=== PATIENT | male | born 1975 | race Caucasian/White ===

== ENCOUNTER 2017-07-07 20:52 | Emergency (ER) | payer OTHER ==
[2017-07-07] MEDS ORDERED: Sulfamethox/Trimethoprim DS 800/160* TAB PO ONE (21:05)
--- NOTE | 2017-07-07 21:05 | ED ---
Skin Complaint - HPI Summary HPI Summary: 41 YEAR OLD MALE PRESENTS WITH COMPLAINS OF AN INSECT BITE ON POSTERIOR RIGHT CALF. - History of Current Complaint Time Seen by Provider: 07/07/17 20:59 Stated Complaint: INSECT BITE LEFT LEG - Allergy/Home Medications Allergies/Adverse Reactions: Allergies Allergy/AdvReac Type Severity Reaction Status Date / Time No Known Allergies Allergy Verified 07/07/17 21:10 PMH/Surg Hx/FS Hx/Imm Hx Endocrine/Hematology History: Reports: Hx Thyroid Disease - hypothyroidism Denies: Hx Diabetes Cardiovascular History: Reports: Hx Angina, Hx Coronary Artery Disease, Hx Hypercholesterolemia, Hx Hypertension, Hx Myocardial Infarction - 2011, Other Cardiovascular Problems/Disorders - CARDIAC CATH/HYPERCHOLESTEROLEMIA Respiratory History: Reports: Hx Sleep Apnea Denies: Hx Asthma, Hx Chronic Obstructive Pulmonary Disease (COPD), Hx Pneumonia GI History: Denies: Hx Gastroesophageal Reflux Disease, Hx Ulcer History: Denies: Hx Acute Renal Failure, Hx Benign Prostatic Hyperplasia, Other Problems/Disorders Musculoskeletal History: Reports: Hx Arthritis, Hx Bursitis Denies: Hx Osteoporosis, Other Musculoskeletal History Sensory History: Denies: Hx Contacts or Glasses, Hx Vision Problem, Hx Deafness, Hx Hearing Aid Opthamlomology History: Denies: Hx Contacts or Glasses, Hx Vision Problem Neurological History: Denies: Hx Migraine, Other Neuro Impairments/Disorders - Surgical History Surgery Procedure, Year, and Place: 07/2012 angioplasty 3rd marginal branch of LAD, [facility]. 01/2012 -3 LAD stents placed, [facility]. 03/2012-angioplasty, [facility] Hx Anesthesia Reactions: No - Immunization History Date of Tetanus Vaccine: UTD WITH SILCOFF Date of Influenza Vaccine: fall 2012 Infectious Disease History: Denies: Hx Clostridium Difficile, Hx Hepatitis, Hx Human Immunodeficiency Virus (HIV), Hx of Known/Suspected MRSA, Hx Shingles, Hx Tuberculosis, Hx Known/ Suspected VRE, Hx Known/Suspected VRSA, History Other Infectious Disease - Social History Alcohol Use: None Substance Use Type: Reports: None Smoking Status (MU): Former Smoker Type: Cigarettes Amount Used/How Often: 1 PPD X 12 YRS Length of Time of Smoking/Using Tobacco: approx 12 years Have You Smoked in the Last Year: No Review of Systems Constitutional: Negative Eyes: Negative ENT: Negative Cardiovascular: Negative Respiratory: Negative Gastrointestinal: Negative Genitourinary: Negative Musculoskeletal: Negative Positive: Rash, Other - RIGHT POSTERIOR CALF INSECT BITE All Other Systems Reviewed And Are Negative: Yes Physical Exam Triage Information Reviewed: Yes Vital Signs Reviewed: Yes Skin: Positive: Erythema @ - RIGHT POSTERIOR CALF INSECT BITE, Other Course/Dx - Diagnoses Provider Diagnoses: Insect bite Discharge - Discharge Plan Condition: Stable Disposition: HOME Prescriptions: Mupirocin 2% OINT* [Bactroban 2 % Oint*] 1 applic TOPICAL BID #1 tube Sulfamethox/Trimethoprim DS* [Bactrim DS 800/160 TAB*] 1 tab PO BID #14 tab Patient Education Materials: Insect Bite or Sting (ED) Referrals: Hever Peñaloza MD [Primary Care Provider] - If Needed
[2017-07-07 21:13] VITALS: BP 128/75
== END 2017-07-07 21:19 | disposition home or self-care (01) ==
LOC: UCCORT 20:52
DX: S80.861A Insect bite (nonvenomous), right lower leg, initial encounter (principal); W57.XXXA Bitten or stung by nonvenomous insect and other nonvenomous arthropods, initial encounter; Y93.9 Activity, unspecified; Y99.9 Unspecified external cause status; I10 Essential (primary) hypertension; I25.10 Atherosclerotic heart disease of native coronary artery without angina pectoris; E78.00 Pure hypercholesterolemia, unspecified
CPT/HCPCS: 99212; A9270-GY; G0463

== ENCOUNTER 2017-12-23 16:41 | Emergency (ER) | payer OTHER ==
--- OUTSIDE RECORDS SUMMARY | 2017-12-23 16:56 | XMS REPORT ---
:1975 External Reference #:[id number] Author Organization [facility] Address [address] [address] Phone [phone] Care Team Providers Name Role Phone Hever Peñaloza MD Care Team Information Biller Unavailable Hever Peñaloza MD Primary Care Physician Unavailable Payers Type Date Identification Numbers Payment Provider Subscriber Commercial Policy Number: [id number] Brayan Cesra JR PayID: [id number] [address] [place] [address] Problems Date Description Provider Status Onset: 05/03/2017 Obstructive sleep apnea syndrome Berta Thakur MD Active Onset: 05/11/2016 Athscl heart disease of mechoopda Galen eMndoza M.D., [facility], Active coronary artery w/o ang pctrs [facility] Onset: 10/24/2013 Hyperlipidemia Galen Mendoza M.D., [facility], Active [facility] Onset: 10/24/2013 Essential hypertension Galen Mendoza M.D., [facility], Active [facility] Onset: 10/24/2013 Chronic ischemic heart disease Galen Mendoza M.D., [facility], Active [facility] Family History Date Family Member(s) Problem(s) Comments General Heart Disease General Cancer General Diabetes Social History Type Date Description Comments Marital Status Lives With Girlfriend Lives With Girlfriend's dad Occupation Contractor Cigarette Use Former Cigarette Smoker ETOH Use Denies alcohol use Smoking Patient is a former smoker quit in 2003 Recreational Drug Use Denies Drug Use Daily Caffeine Consumes on average 3 cups of regular coffee per day Exercise Type/Frequency Exercises regularly Exercise Type/Frequency Home workout 3x per week Exercise Type/Frequency Walks daily Allergies, Adverse Reactions, Alerts Date Description Reaction Status Severity Comments 03/28/2014 NKDA active 05/03/2017 Electrodes Urticaria active Medications Medication Date Status Form Strength Qnty SIG Indications Ordering Provider Atorvastatin Active Tablets 40mg 30tabs 1 by Galen Calcium 016 mouth Stefek, every day M.D., FACC, [facility] Nitrostat Active Tablets 0.4mg 25tabs one sl Galen 016 Sub q5min up Stefek, to 3 M.D., doses as FACC, needed [facility] Aspirin Active Tablets 81mg 100tab 1 po qd Unknown 000 s Fish Oil Active daily Unknown Burp-Less 000 Amlodipine Active Tablets 2.5mg 30tabs 1 by Galen Besylate 000 mouth Stefek, every day M.D., FACC, [facility] Synthroid Active 75mcg daily Unknown 000 Keflex Hx Capsules 500mg 56caps 1 tablet Lauren 014 - by mouth Ralph, q6 hours M.D. 015 Oxycodone-Aceta Hx Tablets 5-325mg 50tabs one to Lauren minophen 014 - two tabs Ralph, by mouth M.D. 014 every 4-6 hours as needed for pain Naproxen Hx Tablets 500mg 40tabs 1 tablet Lauren 014 - with food Ralph, by mouth M.D. 014 twice a day Clopidogrel 0 Hx Tablets 75mg 90tabs 1 po qd Unknown 000 - 014 Atorvastatin 0 Hx Tablets 20mg 90tabs take 1 Unknown Calcium 000 - tablet at bedtime 013 Metoprolol 00/0 Hx Tablets ER 25mg 30tabs 1 po qd Unknown Succinate ER 000 - 24HR 013 Atorvastatin 00/0 Hx Tablets 40mg 1 po qd Unknown Calcium 000 - 014 Plavix /00/0 Hx Unknown 000 - 014 Lipitor 00/0 Hx Unknown 000 - 014 Lipitor 00/00/0 Hx Tablets 40mg 90tabs 1 by Galen 000 - [facility], bedtime M.D., 016 [facility], [facility] Clopidogrel 0 Hx Tablets 75mg Unknown Bisulfate 000 - 015 Vital Signs Date Vital Result Comment 12/05/2017 Height 69 inches 5'9" Weight 186.00 lb with boots Heart Rate 60 /min BP Systolic Sitting 140 mmHg Rue reg cuff BP Diastolic Sitting 90 mmHg Rue reg cuff Respiratory Rate 16 /min O2 % BldC Oximetry 97 % On Ra BMI (Body Mass Index) 27.5 kg/m2 05/03/2017 Height 69 inches 5'9" Weight 175.00 lb per pt Heart Rate 60 /min reg BP Systolic Sitting 130 mmHg Lue, reg cuff BP Diastolic Sitting 88 mmHg Lue, reg cuff Respiratory Rate 16 /min O2 % BldC Oximetry 97 % on Ra BMI (Body Mass Index) 25.8 kg/m2 Neck Circumference in inches 15 05/11/2016 Height 69 inches 5'9" Weight 172.00 lb Heart Rate 56 /min 60 BP Systolic Sitting 124 mmHg right arm, reg cuff BP Diastolic Sitting 80 mmHg right arm, reg cuff BP Systolic Standing 120 mmHg right arm, reg cuff BP Diastolic Standing 80 mmHg right arm, reg cuff Respiratory Rate 16 /min BMI (Body Mass Index) 25.4 kg/m2 Ejection Fraction 60% 12/12/13 Nem 04/30/2015 Height 69 inches 5'9" Weight 170.00 lb Heart Rate 54 /min 56 BP Systolic Sitting 124 mmHg left arm, reg cuff BP Diastolic Sitting 78 mmHg left arm, reg cuff BP Systolic Standing 112 mmHg left arm, reg cuff BP Diastolic Standing 78 mmHg left arm, reg cuff Respiratory Rate 20 /min BMI (Body Mass Index) 25.1 kg/m2 Ejection Fraction 60% 07/18/12 05/23/2014 Height 69 inches 5'9" Weight 180.00 lb Heart Rate 64 /min BMI (Body Mass Index) 26.6 kg/m2 05/14/2014 Height 69 inches 5'9" Weight 180.00 lb Heart Rate 97 /min BP Systolic 129 mmHg BP Diastolic 79 mmHg Body Temperature 98.8 F BMI (Body Mass Index) 26.6 kg/m2 05/01/2014 Height 69 inches 5'9" Weight 184.00 lb Heart Rate 80 /min 90 BP Systolic Sitting 128 mmHg right arm, reg cuff BP Diastolic Sitting 94 mmHg right arm, reg cuff BP Systolic Standing 124 mmHg right arm, reg cuff BP Diastolic Standing 88 mmHg right arm, reg cuff Respiratory Rate 20 /min BMI (Body Mass Index) 27.2 kg/m2 04/23/2014 Height 69 inches 5'9" Weight 180.00 lb Heart Rate 77 /min BP Systolic 135 mmHg BP Diastolic 88 mmHg BMI (Body Mass Index) 26.6 kg/m2 04/14/2014 Height 69 inches 5'9" Weight 180.00 lb Heart Rate 76 /min BP Systolic 137 mmHg BP Diastolic 87 mmHg BMI (Body Mass Index) 26.6 kg/m2 03/28/2014 Height 69 inches 5'9" Weight 180.00 lb Heart Rate 72 /min BMI (Body Mass Index) 26.6 kg/m2 10/24/2013 Height 68 inches 5'8" Weight 191.00 lb Heart Rate 6072 /min BP Systolic Sitting 130 mmHg right arm, reg cuff BP Diastolic Sitting 90 mmHg right arm, reg cuff BP Systolic Standing 128 mmHg right arm, reg cuff BP Diastolic Standing 86 mmHg right arm, reg cuff Respiratory Rate 20 /min BMI (Body Mass Index) 29.0 kg/m2 Results Test Date Test Result H/L Range Note Basic Metabolic Panel 05/25/2017 Sodium 137 mmol/L 133-145 Potassium 4.1 mmol/L 3.5-5.0 Chloride 105 mmol/L 101-111 Co2 Carbon Dioxide 26 mmol/L 22-32 Anion Gap 6 mmol/L 2-11 Glucose 93 mg/dL 70-100 Blood Urea Nitrogen 15 mg/dL 6-24 Creatinine 0.96 mg/dL 0.67-1.17 BUN/Creatinine Ratio 15.6 8-20 Calcium 9.3 mg/dL 8.6-10.3 Egfr Non- 85.5 >60 Egfr 109.9 >60 1 Lipid Profile (Trig/Chol/HDL) 05/25/2017 Triglycerides 65 mg/dL 2 Cholesterol 126 mg/dL 3 HDL Cholesterol 45.1 mg/dL 4 LDL Cholesterol 68 mg/dL 5 Laboratory test finding 05/25/2017 Alt (SGPT) 28 U/L 7-52 6 TSH (Thyroid Stim Horm) 1.78 mcIU/mL 0.34-5.60 7 Surgical Pathology 05/08/2014 S RUN DATE: 05/09/ <SEE 8 NOTE> CBC Auto Diff 11/08/2013 White Blood Count 8.2 10^3/uL 4.8-10.8 Red Blood Count 4.82 10^6/uL 4.0-5.4 Hemoglobin 15.6 g/dL 14.0-18.0 Hematocrit 44 % 42-52 Mean Corpuscular Volume 91 fL 80-94 Mean Corpuscular Hemoglobin 32 pg High 27-31 Mean Corpuscular HGB Conc 36 g/dL 31-36 Red Cell Distribution Width 13 % 10.5-15 Platelet Count 278 10^3/uL 150-450 Mean Platelet Volume 9 um3 7.4-10.4 Abs Neutrophils 4.6 10^3/uL 1.5-7.7 Abs Lymphocytes 2.5 10^3/uL 1.0-4.8 Abs Monocytes 0.7 10^3/uL 0-0.8 Abs Eosinophils 0.3 10^3/uL 0-0.6 Abs Basophils 0 10^3/uL 0-0.2 Abs Nucleated RBC 0.01 10^3/uL Granulocyte % 56.9 % 38-83 Lymphocyte % 30.4 % 25-47 Monocyte % 8.3 % 1-9 Eosinophil % 4.0 % 0-6 Basophil % 0.4 % 0-2 Nucleated Red Blood Cells % 0.1 Basic Metabolic Panel 11/08/2013 Sodium 138 mmol/L 133-145 Potassium 4.2 mmol/L 3.5-5.0 Chloride 104 mmol/L 101-111 Co2 Carbon Dioxide 28.0 mmol/L 22-32 Anion Gap 6.0 mmol/L 2-11 Glucose 99 mg/dL 70-100 Blood Urea Nitrogen 17 mg/dL 6-24 Creatinine 1.10 mg/dL 0.50-1.40 BUN/Creatinine Ratio 15.5 8-20 Calcium 9.1 mg/dL 8.1-9.9 Egfr Non- 74.5 >60 Egfr 95.8 >60 9 Lipid Profile (Trig/Chol/HDL) 11/08/2013 Triglycerides 159 mg/dL 40-200 Cholesterol 134 mg/dL Less than 200 HDL Cholesterol 39 mg/dL Low 40-60 10 Cholesterol/HDL Ratio 3.4 Average 1-4.44 LDL Cholesterol 63.2 Less Than 100 11 Laboratory test finding 11/08/2013 Alt 38 U/L 14-54 Ast 25 U/L 12-42 TSH (Thyroid Stimulating Horm) 10.04 miu/mL High 0.34-5.60 1 Because ethnic data is not always readily available, this report includes an eGFR for both -Americans and non- Americans. The National Kidney Disease Education Program (NKDEP) does not endorse the use of the MDRD equation for patients that are not between the ages of 18 and 70, are , have extremes of body size, muscle mass, or nutritional status, or are non- or non-. According to the National Kidney Foundation, irrespective of diagnosis, the stage of the disease is based on the level of kidney function: Stage Description GFR(mL/min/1.73 m(2)) 1 Kidney damage with normal or decreased GFR 90 2 Kidney damage with mild decrease in GFR 60-89 3 Moderate decrease in GFR 30-59 4 Severe decrease in GFR 15-29 5 Kidney failure <15 (or dialysis) 2 Desirable <150 Borderline high 150-199 High 200-499 Very High >500 3 Desirable <200 Borderline high 200-239 High >239 4 Low <40 Desirable: 40-60 High: >60 5 Desirable: <100 mg/dL Near Optimal: 100-129 mg/dL Borderline High: 130-159 mg/dL High: 160-189 mg/dL Very High: >189 mg/dL 6 FASTING 12 HOUR Copy Result to: Galen MENDOZA ([id number]) 7 FASTING 12 HOUR Copy Result to: Galen MENDOZA ([id number]) 8 RUN DATE: 05/09/14 [facility] LIVE PAGE 1 RUN TIME: [id number] [place], [place] [address] Specimen Inquiry Name: EFREN CESAR : [address]: Lauren Rosas MD Acct: [id number] Unit: [id number] AGE: 38 Location: OR Re05/08/14 SEX: M Status: REG SDC SPEC: [id number] TAYLER: 05/08/14- [facility] DR: Lauren Rosas MD REQ: [id number] RECD: 05/08/141457 STATUS: SOUT _ ORDERED: LEVEL III FINAL DIAGNOSIS Knee, right, pre-patella bursa, excision: Benign synovial tissue with reactive fibrosis. PRE-OPERATIVE DIAGNOSIS Right knee pre-patella bursitis GROSS DESCRIPTION The specimen is received in formalin labeled Efren Cesar, Right Knee Pre- patella Bursa, and consists of a 6.9 x 4.8 x 1.5 cm. aggregate of multiple todd-pink rubbery irregular portions of fibrous tissue admixed with a small amount of yellow fat. The specimen is sectioned and merchandising representative sections are submitted in cassettes A and B. Signed (signature on file) Darline Dobson MD [id number] END OF REPORT * ML=Testing performed at Main Lab DEPARTMENT OF PATHOLOGY, [address] [place] [address] Doug Ellington M.D. Director [facility] # [id number] 9 Because ethnic data is not always readily available, this report includes an eGFR for both -Americans and non- Americans. The National Kidney Disease Education Program (NKDEP) does not endorse the use of the MDRD equation for patients that are not between the ages of 18 and 70, are , have extremes of body size, muscle mass, or nutritional status, or are non- or non-. According to the National Kidney Foundation, irrespective of diagnosis, the stage of the disease is based on the level of kidney function: Stage Description GFR(mL/min/1.73 m(2)) 1 Kidney damage with normal or decreased GFR 90 2 Kidney damage with mild decrease in GFR 60-89 3 Moderate decrease in GFR 30-59 4 Severe decrease in GFR 15-29 5 Kidney failure <15 (or dialysis) 10 HDL Interpretation: Undesirable: High Risk: Less than 40 mg/dL Desirable: Low Risk: Greater than 60 mg/dL 11 LDL Interpretation: Low Risk Optimal Level: LDL Less than 100 mg/dL Near or Above Optimal: LDL 100-129 mg/dL Borderline High Risk: LDL 130-159 mg/dL High Risk: LDL 160-189 mg/dL Very High Risk: LDL Greater than 189 mg/dL Procedures Date CPT Code Description Status 09/13/2017 14669 Polysomnography Sleep Staging 4+ Parameters Completed 05/11/2016 04323 EKG Tracing & Interpretation Completed 04/30/2015 95112 EKG Tracing & Interpretation Completed 12/09/2014 40571 Treadmill Interp/Report Only Completed 12/09/2014 32302 Stress Test Supervsn W/Out I/R Completed 12/09/2014 66798 EKG, Interpretation Only Completed 05/08/2014 72857 Excision Prepatellar Bursa Completed 05/08/2014 25765 Excision Prepatellar Bursa Completed 05/01/2014 06095 EKG Tracing & Interpretation Completed 03/28/2014 70711 Xray Knee 3 Views Completed 02/02/2014 93164 Polysomnography Sleep Staging 4+ Parameters W/Cpap Completed 01/12/2014 13179 Polysomnography Sleep Staging 4+ Parameters Completed 12/12/2013 72888 Treadmill Interp/Report Only Completed 12/12/2013 78922 Stress Test Supervsn W/Out I/R Completed 10/24/2013 29119 EKG Tracing & Interpretation Completed Encounters Type Date Location Provider CPT E/M Dx Office Visit 05/03/2017 [place] [address] G47.33 11:00a [facility] Q38.2 Office Visit 05/11/2016 8:20a [facility] Galen Mendoza M.D., 77857 E78.5 Technical Instructor At [facility], [facility] I10 I25.10 Office Visit 04/30/2015 8:20a [facility] Galen Mendoza M.D., 19957 272.4 Technical Instructor At [facility], [facility] 401.9 414.9 Office Visit 12/09/2014 10:03a [facility], Shayna Escobar N.P. 18838 786.50 Hospitalists 414.00 272.4 401.9 Office Visit 12/08/2014 10:03a [facility], Shayna Escobar, N.P. 47244 786.50 Hospitalists 414.00 272.4 401.9 Office Visit 05/01/2014 3:30p [facility] Galen Mendoza M.D., 45652 414.9 Technical Instructor At [facility], [facility] 401.9 272.4 Office Visit 04/23/2014 2:00p [facility] Lauren Rosas M.D. 76462 726.65 C.M.A. Office Visit 04/14/2014 2:00p [facility] Lauren Rosas M.D. 18634 726.65 C.M.A. Office Visit 03/28/2014 8:30a [facility] Lauren Rosas M.D. 13709 726.65 C.M.A. Office Visit 12/20/2013 2:20p [facility] Rupesh Parada, 88737 780.59 Abigail 786.09 780.79 Office Visit 12/12/2013 12:[facility]p [facility] Zach Garland, 27977 786.51 Hospitalists Abigail 414.01 401.9 794.5 Office Visit 12/11/2013 12:00p [facility], Zach Garland, 73266 786.51 Hospitalists Abigail 414.01 401.9 794.5 Office Visit 10/24/2013 8:15a [facility] Justin Mendoza M.D., 22055 414.9 Technical Instructor At [facility], [facility] 401.9 272.4 Office Visit 03/12/2013 1:15p [facility] Justin Mendoza M.D., 53107 414.9 [facility], [facility] 401.9 272.4 Plan of Care 12/05/2017 - Cintia Townsend DNP, RN, DIRECTOR PROCESS ENGINEERING-BCG47.33 Obstructive sleep apnea ( adult) (pediatric)Comments:Mild sleep apnea AHI 6.5/hour, worse REM 17.1/hour, pam oxygen 83%Follow up:PRNRecommendations:Sleep apnea, mild to use positional therapy and try to favor left side for sleep. Review of sleep study in detail and copy provided. Risks of untreated sleep apnea including cardiovascular events: rhythm irregularities, heart attack, stroke; gastro esophageal reflux disease (GERD); diabetes; anxiety,depression; high blood pressure; accidents (machinery and automobile) Recommendation for PAP other treatment modalities NON-PAP including oral appliance/mandibular advancement device, positional strategies , and surgery discussed. If you want a prescription for the oral appliance/mandibular device or decide to trial CPAP auto, let us know. If you decide to obtain a CDL you will most likely need treatment with CPAP auto. If you have any sleepiness while driving you MUST avoid operating a vehicleor machinery. If you have any further questions, please call the Sleep Disorder Center at [phone].
[2017-12-23 18:31] VITALS: BP 142/83
[2017-12-23] MEDS ORDERED: Amoxicillin PO (*) 500 MG CAP PO ONE (18:55)
[2017-12-23] MEDS ORDERED: Amoxicillin PO (*) 250 MG CAP PO ONE (18:55)
--- NOTE | 2017-12-23 19:07 | UC ---
Ear Complaint HPI - HPI Summary HPI Summary: 42 yo male with URI x 2 weeks left ear pain x days ...got severe today then bloody otorhea no f/c - History of Current Complaint Chief Complaint: UCEar Stated Complaint: LEFT EAR PAIN Time Seen by Provider: 12/23/17 18:49 Hx Obtained From: Patient Onset/Duration: Sudden Onset, Lasting Days Severity Initially: Severe Severity Currently: Severe Pain Intensity: 10 Pain Scale Used: 0-10 Numeric Associated Signs/Symptoms: Positive: Discharge, Hearing Loss, URI Symptoms - Allergies/Home Medications Allergies/Adverse Reactions: Allergies Allergy/AdvReac Type Severity Reaction Status Date / Time No Known Allergies Allergy Verified 12/23/17 18:31 Home Medications: Home Medications Aspirin/Sod Bicarb/Citric Acid [Elham-[place] Es Tab Eff] 1 each PO 12/23/17 [ History] PMH/Surg Hx/FS Hx/Imm Hx Previously Healthy: Yes Endocrine History: Dyslipidemia Cardiovascular History: Cardiac Disease, Hypertension - Surgical History Surgical History: Yes Surgery Procedure, Year, and Place: 07/2012 angioplasty 3rd marginal branch of LAD, [facility]. 01/2012 -3 LAD stents placed, Jhony. 03/2012-angioplasty, [facility] - Family History Known Family History: Positive: Cardiac Disease, Hypertension - Social History Alcohol Use: None Substance Use Type: None Smoking Status (MU): Former Smoker Type: Cigarettes Amount Used/How Often: 1 PPD X 12 YRS Length of Time of Smoking/Using Tobacco: approx 12 years Have You Smoked in the Last Year: No When Did the Patient Quit Smoking/Using Tobacco: 2007 - Immunization History Most Recent Influenza Vaccination: 11/14/2014 Most Recent Tetanus Shot: 2012 Most Recent Pneumonia Vaccination: 2012 Review of Systems Constitutional: Negative Skin: Negative Eyes: Negative ENT: Ear Ache, Sinus Congestion Respiratory: Cough Cardiovascular: Negative Gastrointestinal: Negative Genitourinary: Negative Motor: Negative Neurovascular: Negative Musculoskeletal: Negative Neurological: Negative Psychological: Negative Is Patient Immunocompromised?: No All Other Systems Reviewed And Are Negative: Yes Physical Exam Triage Information Reviewed: Yes Appearance: Well-Appearing, No Pain Distress, Well-Nourished Vital Signs: Initial Vital Signs Temp 98.7 F 12/23/17 18:26 Pulse 62 12/23/17 18:26 Resp 18 12/23/17 18:26 BP 142/83 12/23/17 18:26 Pulse Ox 99 12/23/17 18:26 Vital Signs Reviewed: Yes Eyes: Positive: Conjunctiva Clear ENT: Positive: Nasal congestion. Negative: Hearing grossly normal, TMs normal - left ruptured with bloody otorrhea Neck: Positive: Supple, Nontender, No Lymphadenopathy Respiratory: Positive: Lungs clear, Normal breath sounds, No respiratory distress Cardiovascular: Positive: RRR, No Murmur Musculoskeletal: Positive: ROM Intact, No Edema Neurological: Positive: Alert Psychological Exam: Normal Skin Exam: Normal Ear Complaint Course/Dx - Differential Dx/Diagnosis Provider Diagnoses: left otitis media with perforation Discharge - Discharge Plan Condition: Stable Disposition: HOME Prescriptions: Amoxicillin PO (*) [Amoxicillin 875 MG (*)] 875 mg PO BID #20 tab Patient Education Materials: Ruptured Eardrum (ED), Ear Infection (ED) Referrals: Hever Peñaloza MD [Primary Care Provider] - 2 Weeks (ear recheck in 2-3 weeks) Additional Instructions: aleve 2 twice daily as needed for pain
== END 2017-12-23 19:07 | disposition home or self-care (01) ==
LOC: UCCORT 16:41
DX: H66.92 Otitis media, unspecified, left ear (principal); H72.92 Unspecified perforation of tympanic membrane, left ear; Z87.891 Personal history of nicotine dependence
CPT/HCPCS: 99212; A9270-GY; G0463